=== PATIENT | female | born 1980 ===

== ENCOUNTER 2017-01-22 17:08 | Emergency (ER) | payer OTHER, SELFPAY ==
[2017-01-22 17:09] VITALS: BMI 31.8
[2017-01-22 17:24] VITALS: BP 143/88; TEMP 97.7; O2SAT 99
--- NOTE | 2017-01-22 17:53 | ED PDOC ---
HPI: SOB/CHF/COPD Time Seen by Provider: 01/22/17 17:35 Chief Complaint (Nursing): Shortness Of Breath Chief Complaint (Provider): Dizziness/Fatigue History Per: Patient History/Exam Limitations: no limitations Onset/Duration Of Symptoms: Days (14) Current Symptoms Are (Timing): Still Present Exacerbating Factor(s): Exertion Associated Symptoms: Dizziness. denies: Fever Additional History Per: Patient Additional Complaint(s): Maira Xiong, a 36 years old female with history of thalassemia, hypercholeserolemia and hyperlipidemia, presents to the ED on 01/22/2017 for evaluation of fatigue, dizziness, nausea and weakness associated with shortness of breath upon exertion and chest tightness upon exertion. Denies vomiting, diarrhea, fever, abdominal pain or bloody stools. Past Medical History Reviewed: Historical Data, Nursing Documentation, Vital Signs Vital Signs: Last Vital Signs Temp 97.7 F 01/22/17 17:23 Pulse 61 01/22/17 18:02 Resp 19 01/22/17 19:14 BP 143/88 01/22/17 17:23 Pulse Ox 99 01/22/17 18:02 - Medical History PMH: Anemia, Hypercholesterolemia, Hyperlipidemia Denies: COPD, HIV, Chronic Kidney Disease - Surgical History Other surgeries: hysterectomy - Family History Family History: States: Unknown Family Hx - Immunization History Hx Tetanus Toxoid Vaccination: No Hx Influenza Vaccination: No Hx Pneumococcal Vaccination: No - Home Medications Home Medications: Ambulatory Orders Medication Instructions Recorded Ferrous Sulfate [Feosol] 325 mg PO DAILY 01/22/17 Ibuprofen [Motrin Tab] 800 mg PO Q8H PRN 01/22/17 - Allergies Allergies/Adverse Reactions: Allergies Allergy/AdvReac Type Severity Reaction Status Date / Time aspirin Allergy VOMITING Verified 01/22/17 17:19 morphine AdvReac SWELLING Verified 01/22/17 17:19 Review of Systems ROS Statement: Except As Marked, All Systems Reviewed And Found Negative Constitutional: Positive for: Weakness, Malaise Respiratory: Positive for: SOB with Exertion, Other (chest tightness upon exertion) Gastrointestinal: Positive for: Nausea Neurological: Positive for: Dizziness Physical Exam - Reviewed Nursing Documentation Reviewed: Yes Vital Signs Reviewed: Yes - Physical Exam Appears: Positive for: Well, Non-toxic, No Acute Distress Skin: Positive for: Normal Color, Warm, DRY Eye Exam: Positive for: EOMI, Normal appearance, PERRL ENT: Positive for: Normal ENT Inspection Neck: Positive for: Normal, Painless ROM Cardiovascular/Chest: Positive for: Regular Rate, Rhythm Respiratory: Positive for: Normal Breath Sounds. Negative for: Respiratory Distress Gastrointestinal/Abdominal: Positive for: Normal Exam, Bowel Sounds, Soft. Negative for: Tenderness, Mass, Distended, Guarding, Rebound, Hernia Extremity: Positive for: Normal ROM. Negative for: Pedal Edema, Deformity Neurologic/Psych: Positive for: Alert, Oriented, Gait (steady). Negative for: Motor/Sensory Deficits - Laboratory Results Result Diagrams: 01/22/17 18:00 01/22/17 18:00 - ECG ECG: Positive for: Interpreted By Me, Viewed By Me ECG Rhythm: Positive for: Normal QRS, Normal ST Segment, Sinus Rhythm (normal). Negative for: ST/T Changes Interpretation Of ECG: normal Rate: 61 O2 Sat by Pulse Oximetry: 99 (RA) Pulse Ox Interpretation: Normal Medical Decision Making Medical Decision Makin:35 Differentials included but not limited to: Acute/chronic anemia, UTI, Acute renal failure, Dysrhythmia Initial Plan: * EKG * BMP, CBC * D-dimer, Troponin I * UDip * Type and screen Scribe Attestation: Documented by Lorena Enriquez, acting as a scribe for Catrachito Linder MD. Provider Scribe Attestation: All medical record entries made by the Scribe were at my direction and personally dictated by me. I have reviewed the chart and agree that the record accurately reflects my personal performance of the history, physical exam, medical decision making, and the department course for this patient. I have also personally directed, reviewed, and agree with the discharge instructions and disposition. Disposition - Clinical Impression Clinical Impression: Dizziness - Patient ED Disposition Is Patient to be Admitted: No Doctor Will See Patient In The: Office Counseled Patient/Family Regarding: Studies Performed, Diagnosis, Need For Followup - Disposition Referrals: [facility] [place] [Outside] Disposition: Routine/Home Disposition Time: 19:00 Condition: GOOD Additional Instructions: Follow up with your PCP in 2-3 days. Return for worsening. Instructions: Dizziness (ED) Print Language: JAPANESE
[2017-01-22 18:01] VITALS: PULSE 61
[2017-01-22 18:26] LABS: BASO # 0.1 K/uL (0.0-0.2); BASO % 1.2 % (0.0-2.0); EOS # 0.4 K/uL (0.0-0.7); EOS % 4.2 % (0.0-4.0); HEMATOCRIT 42.2 % (34.0-47.0); LYMPH # 3.3 K/uL (1.0-4.3); LYMPH % 33.5 % (20.0-40.0); MEAN CELL VOLUME 87.4 fl (81.0-99.0); MEAN CORPUSCULAR HEMOGLOBIN 29.8 pg (27.0-31.0); MEAN CORPUSCULAR HGB CONC 34.1 g/dL (33.0-37.0); MEAN PLATELET VOLUME 10.1 fl (7.2-11.7); MONO # 0.5 K/uL (0.0-0.8); MONO % 4.8 % (0.0-10.0); NEUT # 5.6 K/uL (1.8-7.0); NEUT % 56.3 % (50.0-75.0); NRBC % 0.1 % (0.0-0.0); RED CELL DISTRIBUTION WIDTH 13.2 % (11.5-14.5)
[2017-01-22 18:40] LABS: BLOOD UREA NITROGEN 7 mg/dl (7-17); CARBON DIOXIDE 24 mmol/L (22-30); CHLORIDE 101 mmol/L (98-107); GFR AFRICAN-AMERICAN > 60; GLUCOSE,RANDOM 143 mg/dL (65-105); SODIUM 142 mmol/l (132-148)
[2017-01-22 18:42] LABS: POTASSIUM 4.3 MMOL/L (3.6-5.0)
[2017-01-22 19:16] VITALS: RESP 19
--- NOTE | 2017-01-23 10:26 | CARD ---
APPROVED REPORT EKG Measurement Heart [id number] CT 170P45 [id number] <Conclusion> Sinus bradycardia Otherwise normal ECG
== END 2017-01-22 19:57 | disposition home or self-care (01) ==
LOC: H.ER 17:08
DX: R42 Dizziness and giddiness (principal); E78.00 Pure hypercholesterolemia, unspecified; E78.5 Hyperlipidemia, unspecified; D56.9 Thalassemia, unspecified; Z88.6 Allergy status to analgesic agent

== ENCOUNTER 2018-07-28 16:40 | Emergency (ER) | payer SELFPAY ==
[2018-07-28 16:40] VITALS: BMI 31.8
[2018-07-28 18:01] LABS: BASO # 0.1 K/uL (0.0-0.2); BASO % 0.6 % (0.0-2.0); EOS # 0.4 K/uL (0.0-0.7); EOS % 3.5 % (0.0-4.0); HEMOGLOBIN 13.8 g/dL (12.0-16.0); LYMPH # 3.8 K/uL (1.0-4.3); LYMPH % 34.2 % (20.0-40.0); MEAN CELL VOLUME 88.5 fl (81.0-99.0); MEAN CORPUSCULAR HEMOGLOBIN 29.9 pg (27.0-31.0); MEAN CORPUSCULAR HGB CONC 33.8 g/dL (33.0-37.0); MEAN PLATELET VOLUME 8.9 fl (7.2-11.7); MONO # 0.5 K/uL (0.0-0.8); MONO % 4.5 % (0.0-10.0); NEUT # 6.3 K/uL (1.8-7.0); NEUT % 57.2 % (50.0-75.0); NRBC % 0.1 % (0.0-0.0); RBC 4.62 Mil/uL (3.80-5.20); RED CELL DISTRIBUTION WIDTH 12.2 % (11.5-14.5); WHITE BLOOD COUNT 11.1 K/uL (4.8-10.8)
[2018-07-28 18:03] LABS: INR 1.1; PROTHROMBIN TIME 11.8 Seconds (9.8-13.1)
[2018-07-28 18:06] LABS: PARTIAL THROMBOPLASTIN TIME 29.5 Seconds (25.6-37.1)
[2018-07-28 18:11] LABS: CALCIUM 9.3 mg/dL (8.4-10.2); GFR NON-AFRICAN AMERICAN > 60; LIPASE 46 U/L (23-300)
[2018-07-28 18:14] LABS: ALB/GLOB RATIO 1.4 (1.0-2.1); ALBUMIN 4.5 g/dL (3.5-5.0); ALT/SGPT 64 U/L (9-52); AST/SGOT 51 U/L (14-36); BLOOD UREA NITROGEN 10 mg/dl (7-17)
[2018-07-28 18:23] LABS: B-TYPE NATRIURETIC PEPTIDE 54.8 pg/ml (0-450)
[2018-07-28 18:34] LABS: BARBITURATES, UR NEGATIVE (NEGATIVE); BENZODIAZEPINES, UR NEGATIVE (NEGATIVE); OPIATES, UR NEGATIVE (NEGATIVE); PHENCYCLIDINE, UR NEGATIVE (NEGATIVE)
--- NOTE | 2018-07-28 18:39 | CT ---
EXAM: CT Head Without Intravenous Contrast EXAM DATE/TIME: 07/28/2018 5:25 PM CLINICAL HISTORY: 38 years old, female; Pain; Headache; Additional info: Headache dizziness TECHNIQUE: Axial computed tomography images of the head/brain without intravenous contrast. All CT scans at this facility use at least one of these dose optimization techniques: automated exposure control; mA and/or kV adjustment per patient size (includes targeted exams where dose is matched to clinical indication); or iterative reconstruction. Coronal and sagittal reformatted images were created and reviewed. COMPARISON: CT - HEAD W/O CONTRAST 01/04/2016 3:54 PM FINDINGS: Brain: Unremarkable. No hemorrhage. No significant white matter disease. No edema. Ventricles: Unremarkable. No ventriculomegaly. Bones/joints: Unremarkable. No acute fracture. Soft tissues: Unremarkable. Sinuses: Unremarkable as visualized. No acute sinusitis. Mastoid air cells: Unremarkable as visualized. No mastoid effusion. IMPRESSION: Normal head/brain CT.
--- NOTE | 2018-07-28 18:49 | ED PDOC ---
HPI: Chest Pain Time Seen by Provider: 07/28/18 16:59 Chief Complaint (Nursing): Chest Pain Chief Complaint (Provider): Chest Pain History Per: Patient History/Exam Limitations: no limitations Onset/Duration Of Symptoms: Days Current Symptoms Are (Timing): Still Present Quality: Pressure Additional Complaint(s): 38 y/o female with a PMHx of thalassemia presents to the ED complaining of chest pain. Patient reports of feeling left sided chest pain described as pressure yesterday. Patient reports pain is associated with shortness of breath. Patient additionally reports of chills to the legs, lightheadedness, non -veritginous dizziness and headache. Patient reports of feeling a little bit tired since and thought nothing of it until until she began feeling short of breath. Patient reports of having a headache and dizziness in the past when she was diagnosed with thalassemia and had to undergo an infusion. Patient states she has not followed up with [facility] in over a year. Denies black or bloody stools, leg swelling and fever. PMD: None Provided LNMP: Two years ago after Hysterectomy. Past Medical History Reviewed: Historical Data, Nursing Documentation, Vital Signs Vital Signs: Last Vital Signs Temp 98 F 07/28/18 16:53 Pulse 65 07/28/18 19:34 Resp 17 07/28/18 17:21 BP 138/101 H 07/28/18 17:21 Pulse Ox 100 07/28/18 19:34 - Medical History PMH: Anemia, Hypercholesterolemia, Hyperlipidemia Denies: COPD, HIV, Chronic Kidney Disease - Family History Family History: States: Unknown Family Hx - Immunization History Hx Tetanus Toxoid Vaccination: No Hx Influenza Vaccination: Yes Hx Pneumococcal Vaccination: No - Home Medications Home Medications: Ambulatory Orders Medication Instructions Recorded Ferrous Sulfate [Feosol] 325 mg PO DAILY 01/22/17 Ibuprofen [Motrin Tab] 800 mg PO Q8H PRN 01/22/17 - Allergies Allergies/Adverse Reactions: Allergies Allergy/AdvReac Type Severity Reaction Status Date / Time aspirin Allergy VOMITING Verified 07/28/18 16:53 morphine AdvReac SWELLING Verified 07/28/18 16:53 Review of Systems ROS Statement: Except As Marked, All Systems Reviewed And Found Negative (as per HPI) Constitutional: Positive for: Chills. Negative for: Fever Cardiovascular: Positive for: Chest Pain Respiratory: Positive for: Shortness of Breath Neurological: Positive for: Headache, Dizziness (And lightheadedness) Physical Exam - Reviewed Nursing Documentation Reviewed: Yes Vital Signs Reviewed: Yes - Physical Exam Appears: Positive for: Non-toxic, In Acute Distress (mild painful) Skin: Positive for: Warm, Dry, Pallor Eye Exam: Positive for: Normal appearance, EOMI, PERRL ENT: Positive for: Pharynx Is (clear). Negative for: Pharyngeal Erythema Neck: Positive for: Painless ROM, Supple Cardiovascular/Chest: Positive for: Regular Rate, Rhythm. Negative for: Murmur Respiratory: Positive for: Normal Breath Sounds. Negative for: Respiratory Distress Gastrointestinal/Abdominal: Positive for: Soft. Negative for: Tenderness Back: Positive for: Normal Inspection. Negative for: Decreased ROM Extremity: Positive for: Normal ROM. Negative for: Deformity Lymphatic: Negative for: Adenopathy Neurologic/Psych: Positive for: Alert, criminal justice instructor II-XII (intact), Oriented (x3). Negative for: Motor/Sensory Deficits - Laboratory Results Result Diagrams: 07/28/18 17:50 07/28/18 17:50 - ECG ECG: Positive for: Interpreted By Ks ECG Rhythm: Positive for: Normal QRS, Normal ST Segment, Sinus Rhythm Rate: 65 O2 Sat by Pulse Oximetry: 100 (RA) Pulse Ox Interpretation: Normal - Radiology X-Ray: Interpreted by Ks X-Ray Interpretation: No Acute Disease Medical Decision Making Medical Decision Making: Time: 1720 Impression: Lightheadedness, chest pain and headache Differentials include but not limited to anemia, electrolyte abnormality, dehydration, Pulmonary Embolism, heart failure and thyroid disruption Plan: -- EKG -- ED Urine -- ED Urine Dipstick -- CXR Two Views -- IV Insertion -- Prothrombin Time -- PTT -- D Dimer -- CBC with differentials -- Troponin I -- Thyroid Stimulating Hormone -- Phosphorus -- Magnesium -- Lipase -- Urine Drug Screen -- CMP -- BNP -- CT Head w/o ContrAst Time: 183 CT RESULTS FINDINGS: Brain: Unremarkable. No hemorrhage. No significant white matter disease. No edema. Ventricles: Unremarkable. No ventriculomegaly. Bones/joints: Unremarkable. No acute fracture. Soft tissues: Unremarkable. Sinuses: Unremarkable as visualized. No acute sinusitis. Mastoid air cells: Unremarkable as visualized. No mastoid effusion. IMPRESSION: Normal head/brain CT. Thank you for allowing us to participate in the care of your patient. Dictated and Authenticated by: Linsey Pack MD 07/28/2018 6:39 PM Eastern Time ([place] & [place]) Labs unremarkable. Scribe Attestation: Documented by Qi Salazar acting as a scribe for Karen Bates MD. Provider Scribe Attestation: All medical record entries made by the Scribe were at my direction and personally dictated by me. I have reviewed the chart and agree that the record accurately reflects my personal performance of the history, physical exam, medical decision making, and the department course for this patient. I have also personally directed, reviewed, and agree with the discharge instructions and disposition. Disposition - Clinical Impression Clinical Impression: Dizziness - Disposition Referrals: [facility] [Outside] - 07/30/18 Disposition: Routine/Home Disposition Time: 21:03 Condition: STABLE Instructions: Dizziness, Nonvertigo, (DC) Print Language: GREEK
[2018-07-28 21:59] VITALS: BP 132/80; PULSE 78; RESP 16; TEMP 97.9; O2SAT 99
--- NOTE | 2018-07-29 09:43 | RAD ---
Date of service: 07/28/2018 HISTORY: chest pain COMPARISON: 02/08/2016 TECHNIQUE: Chest PA and lateral FINDINGS: LUNGS: No active pulmonary disease. PLEURA: No significant pleural effusion identified. No pneumothorax apparent. CARDIOVASCULAR: Normal. OSSEOUS STRUCTURES: No significant abnormalities. VISUALIZED UPPER ABDOMEN: Normal. OTHER FINDINGS: None. IMPRESSION: No active disease.
--- NOTE | 2018-07-29 10:01 | CARD ---
APPROVED REPORT Date of service: 07/28/2018 EKG Measurement Heart [id number] NM [id number] [id number] <Conclusion> Normal sinus rhythm Normal ECG
== END 2018-07-28 21:59 | disposition home or self-care (01) ==
LOC: H.ER 16:40
DX: R07.89 Other chest pain (principal); R42 Dizziness and giddiness; D56.9 Thalassemia, unspecified; E78.00 Pure hypercholesterolemia, unspecified; Z88.5 Allergy status to narcotic agent
CPT/HCPCS: 70450; 71046; 80053; 81025; 83690; 83735; 83880; 84100; 84443; 84484; 85025; 85378; 85610; 85730; 86850; 86900; 93005; 99283; G0480